=== PATIENT | male | born 2000 | race Asian ===

== ENCOUNTER 2025-01-25 15:24 | Inpatient (IN) ==
[2025-01-25] MEDS: ACETAMINOPHEN 1,000 MG/100 ML VIAL IV STA (15:57)
[2025-01-25] MEDS: KETOROLAC TROMETHAMINE 15 MG/ML VIAL IV STA (15:57)
[2025-01-25] MEDS: dexAMETHasone**PF** 10 MG/ML VIAL IV ONE (15:57)
[2025-01-25] MEDS: SODIUM CHLORIDE 0.9% 1,000 ML IV ONE (15:58)
--- NOTE | 2025-01-25 15:58 | Emergency Department Note ---
Impression & Plan Acute tonsillitis, Leukocytosis, Abnormal computed tomography of neck ED Provider Note NAME: MAKAYLA WILBURN AGE: 24 SEX: M : 2000 ARRIVES VIA: Walk-In INFORMANT: [Patient] ED PROVIDER(S): [Augustin Yeung MD] CHIEF COMPLAINT: Illness HISTORY OF PRESENT ILLNESS: The patient is a 24-year-old male who states that last night, his throat began to hurt. It was worse today and he had a fever. The right side hurts more. It is hard to swallow and he feels a bit short of breath. There has been no cough or congestion. No stuffy nose, no vomiting or diarrhea. He does not have any chest pain. He has no diagnosed lung disease. He denies sick contacts. PMHx/PSHx/Social Hx: See Below PHYSICAL EXAM: GENERAL: Patient is in no acute distress. HEENT: No acute trauma, normocephalic atraumatic, mucous membranes moist, no nasal congestion. Patient has bilateral throat erythema with fullness of the right tonsillar area consistent with potential small abscess. There is no uvular shift. No uvular edema. NECK: No stridor, moderate bilateral anterior cervical adenopathy, no meningismus, trachea is midline. LUNGS: Clear to auscultation bilaterally, no wheeze, no rhonchi, breath sounds equal. HEART: Without murmurs gallops or rubs, regular rate and rhythm. ABDOMEN: Soft, nontender, no peritonitis. EXTREMITIES: No cyanosis, full range of motion of all the joints without pain or difficulty. NEUROLOGIC: Oriented x 3, no acute motor or sensory deficits, no focal weakness. SKIN: No jaundice, no diaphoresis. DIFFERENTIAL DIAGNOSIS: Peritonsillar abscess, tonsillar cellulitis, pharyngitis, strep pharyngitis, mononucleosis, viral illness, among others. EMERGENCY DEPARTMENT PROCEDURES: MEDICAL DECISION MAKING: There is a moderate leukocytosis at around 17,000, this is consistent with infection. There is a normal hemoglobin and platelet count. No bandemia on the CBC differential. No renal failure or significant electrolyte abnormality. No concerning liver enzyme elevation. COVID, influenza and RSV test were negative. Strep testing was negative. Grand testing was negative. Soft tissue neck CT showed a potential abscess to the left tonsillar space. The airway was patent. On exam, the patient had significant pharyngitis, he had significant cervical adenopathy. The patient received IV Toradol, IV saline. He was given IV Decadron, IV clindamycin and IV Tylenol. The patient does feel improved with the treatment provided above. I did speak with ENT. For now, the patient does not require any emergent ENT intervention. He can be hospitalized on IV antibiotics, fluids and steroids, he can be seen by ENT tomorrow. If a procedure is necessary, it can be performed tomorrow a.m. I spoke with the patient, I did speak with case management, the on-call hospitalist was consulted. Prior/Outside records/notes reviewed: None Imaging/x-ray results per my interpretation: Chest x-ray does not show pneumonia or pneumothorax. There is no mediastinal widening. Chronic Medical/Social conditions affecting care: None Care/Management discussed with: ENT-Dr. Vidales. Case management and the on- call hospitalist. Level of care consideration(s): After review of the information above and other included data: --I believe the patient requires escalation of care to admission DISPOSITION: Admission Past Med/Surg History Problem List (Updated 01/25/25 @ 19:00 by Augustin Yeung MD) Abnormal computed tomography of neck (Acute) Leukocytosis (Acute) Acute tonsillitis (Acute) Tonsillar abscess Medical History No significant medical problems Social History Smoking Status: Former smoker Preferred Language: Polish Feels Safe at Home: Yes Allergies Allergies Allergy/AdvReac Type Severity Reaction Status Date / Time shrimp Allergy Severe Itchy Unverified 01/25/25 17:33 Throat Penicillins Allergy Unknown Verified 01/25/25 17:33 Home Meds Home Medications Medication Instructions Recorded Confirmed No Known Home Medications 01/25/25 01/25/25 Results & Data (ED) Vital Signs Vital Signs - 24 hr 01/25/25 15:25 01/25/25 15:42 01/25/25 15:44 Temperature 36.8 C Temperature Source Temporal Artery Scan Pulse Rate 102 H 95 H 95 H Pulse Rate [Apical] Pulse Rate from SpO2 Sensor 93 H Pulse Strength Normal Respiratory Rate 19 22 Respiratory Effort / Characteristics Non-Labored Spontaneous Respiratory Depth Normal Respiratory Pattern Regular Blood Pressure 114/61 146/90 H Blood Pressure [Right Arm] Blood Pressure Mean 78 108 Blood Pressure Mean [Right Arm] Blood Pressure Position Sitting Pulse Oximetry 92 98 Oxygen Delivery Method Room Air Room Air Sepsis Recent Fever Within 48 Hours No Sepsis New/Unexplained Change in Mental Status No Sepsis Action Taken by Nursing No Action Required 01/25/25 16:06 01/25/25 18:00 Temperature Temperature Source Pulse Rate 93 H Pulse Rate [Apical] 72 Pulse Rate from SpO2 Sensor 93 H Pulse Strength Respiratory Rate 19 17 Respiratory Effort / Characteristics Non-Labored Spontaneous Respiratory Depth Normal Respiratory Pattern Regular Blood Pressure 134/96 Blood Pressure [Right Arm] 121/59 L Blood Pressure Mean 108 Blood Pressure Mean [Right Arm] 79 Blood Pressure Position Pulse Oximetry 99 97 Oxygen Delivery Method Room Air Room Air Sepsis Recent Fever Within 48 Hours Sepsis New/Unexplained Change in Mental Status Sepsis Action Taken by Longterm Medications Current Medication List: was personally reviewed by me Laboratory Data Attestation: I reviewed the patient's lab results. 01/25/25 15:45 01/25/25 15:45 Lab Results 01/25/25 Range/Units 15:45 WBC 17.42 H (4.8-10.8) K/ul RBC 4.57 L (4.70-6.10) M/uL Hgb 14.5 (14.0-18.0) g/dl Hct 42.6 (42.0-52.0) % MCV 93.2 (80.0-100.0) fL MCH 31.7 (25.0-34.0) pg MCHC 34.0 (32.0-36.0) g/dL RDW Std Deviation 39.2 (36.4-46.3) fL RDW Coeff of Azul 11.7 (11.5-14.5) % Plt Count 273 (130-400) K/uL MPV 9.4 (9.4-12.4) fL Immature Gran % (Auto) 0.6 % Neut % (Auto) 83.9 % Lymph % (Auto) 6.3 % Grand % (Auto) 8.7 % Eos % (Auto) 0.2 % Baso % (Auto) 0.3 % Neut # (Auto) 14.62 H (1.40-6.50) K/uL Lymph # (Auto) 1.10 L (1.20-3.40) K/uL Grand # (Auto) 1.51 H (0.11-0.59) K/uL Eos # (Auto) 0.03 (0.00-0.50) K/uL Baso # (Auto) 0.06 (0.00-0.20) K/uL Immature Gran # (Auto) 0.10 (0.01-0.20) K/uL Sodium 134 L (136-145) mmol/L Potassium 3.6 (3.5-5.1) mmol/L Chloride 99 (98-107) mmol/L Carbon Dioxide 28 (21-32) mmol/L Anion Gap 7 (3-11) BUN 7 (6-23) mg/dl Creatinine 0.96 (0.6-1.4) mg/dl Est Cr Clr Drug Dosing 132.9 ml/min eGFR 112.49 BUN/Creatinine Ratio 7.3 L (10-20) Glucose 120 H (70-99(Fasting)) mg/dl Calcium 9.2 (8.6-10.3) mg/dl Total Bilirubin 0.8 (0.2-1.0) mg/dl AST 13 (13-39) U/L ALT 10 (7-52) U/L Alkaline Phosphatase 60 (34-104) U/L Total Protein 7.9 (6.0-8.3) gm/dl Albumin 4.1 (3.4-5.0) gm/dl Globulin 3.8 (2.5-4.0) gm/dl Albumin/Globulin Ratio 1.1 (0.9-2) SARS-CoV-2 (PCR) NEGATIVE (Negative) Monoscreen Negative (Negative) Influenza Type A (PCR) Negative (Neg) Influenza Type B (PCR) Negative (Neg) RSV (RT-PCR) Negative (Neg) Group A Strep (PCR) NOT DETECTED (NotDetected) Administered Medications Discontinued Medications Dexamethasone Sodium Phosphate (DexamethasonePf 10 Mg/Ml Vial) 10 mg IV NOW ONE Stop: 01/25/25 15:45 Last Admin: 01/25/25 15:57 Dose: 10 mg Documented By: KMO Sodium Chloride (Nss) 1,000 mls @ 999 mls/hr IV .Q1H1M ONE Stop: 01/25/25 16:44 Last Infusion: 01/25/25 17:41 Dose: Infused Documented By: Admin: 01/25/25 15:58 Dose: 999 mls/hr Documented By: ROSALIA Acetaminophen (Ofirmev) 1,000 mg in 100 mls @ 400 mls/hr IV NOW STA Stop: 01/25/25 15:58 Last Infusion: 01/25/25 17:41 Dose: Infused Documented By: Admin: 01/25/25 15:57 Dose: 400 mls/hr Documented By: ROSALIA Ampicillin Sodium/Sulbactam Sodium (Unasyn) 3,000 mg in 100 mls @ 200 mls/hr IV NOW STA Stop: 01/25/25 16:13 Last Admin: 01/25/25 16:10 Dose: Not Given Documented By: ROSALIA Clindamycin Phosphate (Cleocin/D5w) 900 mg in 50 mls @ 100 mls/hr IV NOW ONE Stop: 01/25/25 16:35 Last Infusion: 01/25/25 18:54 Dose: Infused Documented By: Admin: 01/25/25 18:04 Dose: 100 mls/hr Documented By: ROSALIA Ioversol (Optiray 320 100ml) 90 ml IV ONCE ONE Stop: 01/25/25 17:09 Last Admin: 01/25/25 17:08 Dose: 90 ml Documented By: GABE Ketorolac Tromethamine (Ketorolac Tromethamine 15 Mg/Ml Vial) 15 mg IV NOW STA Stop: 01/25/25 15:45 Last Admin: 01/25/25 15:57 Dose: 15 mg Documented By: ROSALIA Imaging Data Radiologist's Impression: Chest X-Ray 01/25/25 15:44 XR chest 1V portable CLINICAL HISTORY: sob COMPARISON STUDY: None FINDINGS: Heart size and pulmonary vasculature are normal. No consolidation or pleural effusion. No pneumothorax. IMPRESSION: No acute findings. ACT 112: Negative or not required by law. Electronically signed by: Burt Escobedo M.D. 01/25/2025 3:[address] PM [address] Tissue Neck [address] 01/25/25 15:44 Clinical history: Right tonsillar swelling Technique: Axial computed tomography images were obtained of the neck after the administration of intravenous contrast Findings: There is bilateral palatine tonsillar enlargement. There is a 1.5 cm abscess in the left palatine tonsil. The salivary glands appear unremarkable. There are enlarged lymph nodes in the parapharyngeal, carotid, and posterior triangle spaces bilaterally, measuring up to 1.6 cm in short axis. No foreign body is evident There is no sign of epiglottitis or prevertebral inflammation. No definite abnormality of the larynx is noted. The thyroid gland appears normal. The jugular veins appear patent. No stenosis is seen of the carotid arteries. There are mucus retention cysts in the maxillary sinuses bilaterally. The mastoid air cells appear clear. The lung apices appear unremarkable Impression: 1. Bilateral tonsillar enlargement with a 1.5 cm abscess in the left palatine tonsil 2. Bilateral neck adenopathy, likely due to infection 3. Chronic sinusitis ACT 112: Positive. There are findings on this exam that require communication between the performing entity and the patient following Patient Test Result Information Act ([place] ACT 112) guidelines. Electronically signed by Vincent Sanders 01-25-2025 5:25 PM Discharge Plan Visit Data Chief Complaint: Illness Stated Complaint: FEVER,EXTREME PAIN IN THROAT,HARD TO BREATHE ED Provider: Augustin Yeung Discharge Problem: Acute tonsillitis, Leukocytosis, Abnormal computed tomography of neck Patient Disposition: Admitted As Inpatient Condition: Fair Forms Stand Alone Forms: [employer] Prescriptions Prescriptions: No Action No Known Home Medications Referrals Referrals: PCP,NO [Primary Care Provider] - Discharge Problem: Acute tonsillitis Qualifiers: Pharyngitis/tonsillitis etiology: unspecified etiology Qualified Code(s): J 03.90 - Acute tonsillitis, unspecified Leukocytosis Qualifiers: Leukocytosis type: unspecified Qualified Code(s): D72.829 - Elevated white blood cell count, unspecified
--- NOTE | 2025-01-25 15:59 | XRay Report ---
XR chest 1V portable CLINICAL HISTORY: sob COMPARISON STUDY: None FINDINGS: Heart size and pulmonary vasculature are normal. No consolidation or pleural effusion. No p neumothorax. IMPRESSION: No acute findings. ACT 112: Negative or not required by law. Electronically signed by: Burt Escobedo M.D. 01/25/2025 3:58 PM
[2025-01-25 16:07] LABS: Hematocrit (blood only) 42.6 % (42.0-52.0); Hemoglobin 14.5 g/dl (14.0-18.0); Immature Granulocytes # (auto) 0.10 K/uL (0.01-0.20); Immature Granulocytes % (auto) 0.6 %; Mean Corpuscular Hemoglobin 31.7 pg (25.0-34.0); Mean Corpuscular Volume 93.2 fL (80.0-100.0); Platelet Count 273 K/uL (130-400); RDW Standard Deviation 39.2 fL (36.4-46.3); Red Blood Count 4.57 M/uL (4.70-6.10); White Blood Count 17.42 K/ul (4.8-10.8)
[2025-01-25] MEDS: AMPICILLIN/SULBACTAM SOD 3,000 MG/100 ML BAG IV STA (16:10)
[2025-01-25 16:25] LABS: Alanine Aminotransferase 10.0 U/L (7-52); Albumin Globulin Ratio 1.1 (0.9-2); Alkaline Phosphatase 60.0 U/L (34-104); Anion Gap 7.0 (3-11); Bilirubin,Total 0.8 mg/dl (0.2-1.0); Blood Urea Nitrogen 7.0 mg/dl (6-23); Calcium 9.2 mg/dl (8.6-10.3); Carbon Dioxide 28.0 mmol/L (21-32); Chloride 99.0 mmol/L (98-107); Creatinine Clr Calc Pharmacy 132.9 ml/min; Globulin 3.8 gm/dl (2.5-4.0); Glucose 120.0 mg/dl (70-99(Fasting)); Potassium 3.6 mmol/L (3.5-5.1); Sodium 134.0 mmol/L (136-145); Total Protein 7.9 gm/dl (6.0-8.3)
[2025-01-25 16:45] LABS: Influenza A virus by PCR Negative (Neg); Influenza B virus by PCR Negative (Neg); SARS CoV2 RNA(COVID-19) Ceph NEGATIVE (Negative)
[2025-01-25] MEDS: OPTIRAY 320 100ml IV ONE (17:08)
--- NOTE | 2025-01-25 17:25 | CT Scan Report ---
Clinical history: Right tonsillar swelling Technique: Axial computed tomography images were obtained of the neck after the administration of intravenous contrast Findings: There is bilateral palatine tonsillar enlargement. There is a 1.5 cm abscess in the left palatine tonsil. The salivary glands appear unremarkable. There are enlarged lymph nodes in the parapharyngeal, carotid, and posterior triangle spaces bilaterally, measuring up to 1.6 cm in short axis. No foreign body is evident There is no sign of epiglottitis or prevertebral inflammation. No definite abnormality of the larynx is noted. The thyroid gland appears normal. The jugular veins appear patent. No stenosis is seen of the carotid arteries. There are mucus retention cysts in the maxillary sinuses bilaterally. The mastoid air cells appear clear. The lung apices appear unremarkable Impression: 1. Bilateral tonsillar enlargement with a 1.5 cm abscess in the left palatine tonsil 2. Bilateral neck adenopathy, likely due to infection 3. Chronic sinusitis ACT 112: Positive. There are findings on this exam that require communication between the performing entity and the patient following Patient Test Result Information Act ([place] ACT 112) guidelines. Electronically signed by Vincent Sanders 01-25-2025 5:25 PM
[2025-01-25] MEDS: CLINDAMYCIN/D5W 900 MG/50 ML BAG IV ONE (18:04)
[2025-01-25] MEDS ORDERED: ACETAMINOPHEN 325 MG TAB PO PRN (18:19)
--- NOTE | 2025-01-25 18:28 | History & Physical Report ---
Date of Service January 25, 2025 Assessment & Plan (1) Tonsillar abscess: Plan Assessment/plan Tonsillitis with possible peritonsillar abscess Patient presents with fever, throat pain for 1 day Leukocytosis present on admission Soft tissue of the neck showed bilateral tonsillar enlargement with 1.5 cm abscess in the left palatine tonsil, bilateral neck adenopathy, chronic sinusitis. Provide supportive care with IV fluids, analgesics. Full liquid diet IV ampicillin-sulbactam 3 g every 6 hours ED provider discussed with ENT; consult placed; to be seen in a.m. Full code DVT prophylaxis ambulation, SCDs Time spent evaluating patient, direct bedside care, chart review, placing orders, interpretation of diagnostic studies, discussion with consultants, patient, and family members, as well as other required patient management activ ities is 60 minutes Please note the above document was generated using voice recognition software. It may contain grammatical, syntax or spelling errors. Any formal questions or concerns about the content, text or information contained within the body of this dictation should be directly addressed to the provider for clarification History of Present Illness Chief Complaint: Sore throat and fever for 1 day Primary Care Provider: NO PCP Patient is a 24-year-old male who presented to the ED with complaint of sore throat since last 1 day. He also reports fever as well for similar duration. He reports pain on the right side of his neck while swallowing. Reports mild shortness of breath; no stridor. He denies complaint of vision changes, weakness/numbness of any body part, neck rigidity, chest pain, abdominal pain or urinary symptoms. On presentation to the ED, he was afebrile, normotensive and saturating well in room air.He was found to have leukocytosis with WC count of 17,000. Serum sodium of 134. Chest x-ray did not show any acute finding. Soft tissue of the neck showed bilateral tonsillar enlargement with 1.5 cm abscess in the left palatine tonsil, bilateral neck adenopathy, chronic sinusitis. ED provider discussed with ENT; who recommended IV fluids, IV antibiotic; to be seen in a.m. to determine if patient will need abscess drainage. Allergies Allergy/AdvReac Type Severity Reaction Status Date / Time shrimp Allergy Severe Itchy Unverified 01/25/25 17:33 Throat Penicillins Allergy Unknown Verified 01/25/25 17:33 Home Medications Medication Instructions Recorded Confirmed Type No Known Home Medications 01/25/25 01/25/25 History Past Med/Surg History Problem List (Updated 01/25/25 @ 18:26 by Ashish Mora MD) Tonsillar abscess Social History Smoking Status: Former smoker Preferred Language: Cook Islander Feels Safe at Home: Yes Review of Systems Review of Systems: All systems reviewed & are unremarkable except as noted in Subjective Physical Exam Physical Exam: On physical examination; Constitutional: Appears tired; no stridor. Mouth/;Throat erythema, right-sided tonsillar enlargement Respiratory: normal respiratory effort, lungs clear to auscultation, no wheeze, rales, rhonchi. Normal insp/exp effort, no accessory muscle use Cardiovascular: RRR, no murmur, no edema Vessels: no JVD or carotid bruit Chest: normal inspection of chest Abdomen: normal bowel sounds, soft, nontender, no hepatosplenomegaly Musculoskeletal: no cyanosis or clubbing, extremities motor strength 5/5 Skin: no rashes, warm and dry normal turgor Neurologic: PERRL, EOMI, accommodation nl, no face palsy, no dysarthria CN's II- XI intact bilaterally and moves all extremities Psychiatric: A+Ox3, euthymic affec Results & Data Results & Data Vital Signs (Past 12 Hours) Vital Signs Temp Pulse Pulse Resp BP BP Pulse Ox 01/25/25 18:00 72 17 121/59 L 97 01/25/25 16:06 93 H 19 134/96 99 01/25/25 15:44 95 H 01/25/25 15:42 95 H 22 146/90 H 98 01/25/25 15:25 36.8 C 102 H 19 114/61 92 O2 Del Method 01/25/25 18:00 Room Air 01/25/25 16:06 Room Air 01/25/25 15:44 01/25/25 15:42 Room Air 01/25/25 15:25 Room Air Code Status & VTE Plan VTE Prophylaxis Plan VTE Prophylaxis will be ordered: Yes
[2025-01-25] MEDS: SODIUM CHLORIDE 0.9% 500 ML IV SCH (19:35)
[2025-01-25] MEDS: KETOROLAC TROMETHAMINE 15 MG/ML VIAL IV PRN (21:48)
[2025-01-25] MEDS: AMPICILLIN/SULBACTAM SOD 3,000 MG/100 ML BAG IV SCH (21:53)
[2025-01-25 22:28] VITALS: PULSE 72; RESP 18
--- NOTE | 2025-01-26 06:57 | ENT Consultation ---
Date of Consultation January 26, 2025 Assessment & Plan (1) Acute tonsillitis: Bilateral exudative tonsillitis with leukocytosis, nonspecific bacterial etiology. Strep and mono testing negative. COVID-negative. He is clinically significantly improved with resolution of dysphagia and pain with a few doses of IV antibiotics. Clinically there is no tonsil or asymmetry and no abscess amenable to drainage. I personally reviewed his CT scan from last night and it shows inflammatory changes of the tonsils bilaterally. There is a cystic lucency within the parenchyma of the left tonsil. The peritonsillar space is normal and his pain upon presentation was on the contralateral side and has improved. Confident he will continue to improve with appropriate antibiotics. There is no surgical indication at this time. Diet can be advanced. If white count is improved then he could be converted over to oral antibiotics with anaerobic coverage Augmentin (tolerating Unasyn but reports penicillin allergy) versus clindamycin and potentially discharged later today or tomorrow. ENT follow-up if symptoms not resolved within a week or worsening prior History of Present Illness Reason for Consultation: Exudative tonsillitis, possible abscess Attending Physician: Ashish Mora MD History of Present Illness 24-year-old male, recent travel history to [facility] in the past 2 weeks where he developed a sore throat felt feverish. Poor historian and not sure what treatment he was given there however he returned home and was feeling well until 24 hours ago developed increasing sore throat with fever difficulty swallowing. Throat pain was on the right side. Presented to the ER and found to have a white count of 17,[address] scan of the neck was completed showing adenopathy consistent with exam and tonsil inflammation. There is a lucency in the left measuring 1.5 cm. He was afebrile on admission. He received antibiotics and a dose of IV dexamethasone in the emergency room and has been admitted on Unasyn. Reports significant improvement in his symptoms today. He feels well this morning and is able to swallow his secretions. He is having no laterality to his throat discomfort. He has no anxiety about his breathing. Allergies Allergy/AdvReac Type Severity Reaction Status Date / Time shrimp Allergy Severe Itchy Unverified 01/25/25 17:33 Throat Penicillins Allergy Unknown Verified 01/25/25 17:33 Home Medications Medication Instructions Recorded Confirmed Type No Known Home Medications 01/25/25 01/25/25 History Patient History Medical History No significant medical problems Social History Smoking Status: Former smoker Tobacco Type: Cigarettes Second Hand Exposure: No; Do You Dip or Chew Tobacco: No; Tobacco Cessation Education Requested by Patient: No Hx Alcohol Use: No Hx Substance Use: No Preferred Language: Yi Communication Ability: Effective Scraper Hand Required: No Beliefs That Will Affect Care: None Current Living Situation: Alone Other Information That Helps Us Care for You: No Feels Safe at Home: Yes Safety Concerns: Feels Safe At This Time Assistive Devices: None Physical Exam Physical Exam: * Constitution: Afebrile temperature 36.9 * General Appearance: Well developed, Well nourished, No acute distress * Head, Face, Salivary Glands, and TMJ * Inspection of Head and Face: Normal facial symmetry, Normal facial contours, No masses noted, No significant scars, No lesions present, No swelling * Head/Face Palpation: No tenderness to percussion or pressure, Normal skeletal contour and stability * Parotid/Submandibular Glands Palpation: Parotid glands normal, Submandibular glands normal * Facial Strength and Mobility: Facial strength and mobility normal on left, Facial strength and mobility normal on right * Nose * Nasal Interior: Nasal septum normal, Normal mucosa with no swelling, polyps, active bleeding or evidence of bleeding, normal nasality, * Mouth and Throat * Lips, Teeth, and Gums: Lips normal, Teeth in good repair, Gums normal * Oral Cavity and Oropharynx: Bilateral tonsils are 3+ with dense white exudate superficially. They appear symmetric. Soft palate normal, no bulging or displacement of the uvula in either direction. Palpation of the pillars reveals no fluctuance or specific tenderness on either side, Posterior pharynx normal, Oral mucosa with normal color and moisture, [Anterior two thirds of tongue normal, Hard palate normal, Floor of mouth normal, * Hypopharyngeal Macario: Macario symmetrical, Posterior macario not bulging, No mucosal lesions * Neck and Thyroid * Neck: Normal symmetry, Trachea is midline, mild reactive bilateral level 2 lymphadenopathy, No neck masses, scratch * Thyroid: No masses, No tenderness * Neurologic * Cranial Nerves: II-XII grossly intact and symmetrical Results & Data Vital Signs (Past 12 Hours) Vital Signs Temp Pulse Pulse Resp BP Pulse Ox O2 Del Method 01/25/25 22:07 36.9 C 72 18 121/63 96 Room Air 01/25/25 20:20 85 16 99 Room Air 01/25/25 20:00 67 16 103/60 98 Room Air 01/25/25 19:48 70 PG Care Time/CCT Total # of Minutes Spent Total Time Spent with Patient: Total time spent is greater than 50% in coordination of care (as documented) at patient's floor/unit and/or counseling patient: Coding Level of Care Code 58445 IN/OBS CONSULT LVL 3,45M Diagnoses Acute tonsillitis J03.90 Pharyngitis/tonsillitis etiology: unspecified etiology (1) Acute tonsillitis Pharyngitis/tonsillitis etiology: unspecified etiology Qualified Code(s): J03.90 - Acute tonsillitis, unspecified
[2025-01-26 07:12] VITALS: BP 104/61; TEMP 98.1; O2SAT 99
[2025-01-26 07:51] LABS: Hematocrit (blood only) 38.4 % (42.0-52.0); Hemoglobin 13.6 g/dl (14.0-18.0); Mean Corpuscular Hemoglobin 32.9 pg (25.0-34.0); Mean Corpuscular Volume 93.0 fL (80.0-100.0); Platelet Count 274 K/uL (130-400); RDW Standard Deviation 38.6 fL (36.4-46.3); Red Blood Count 4.13 M/uL (4.70-6.10); White Blood Count 22.98 K/ul (4.8-10.8)
[2025-01-26 08:19] LABS: Immature Granulocytes # (auto) 0.17 K/uL (0.01-0.20); Immature Granulocytes % (auto) 0.7 %
[2025-01-26 08:47] LABS: Anion Gap 6.0 (3-11); Blood Urea Nitrogen 8.0 mg/dl (6-23); Calcium 8.9 mg/dl (8.6-10.3); Carbon Dioxide 26.0 mmol/L (21-32); Chloride 106.0 mmol/L (98-107); Creatinine Clr Calc Pharmacy 187.7 ml/min; Glucose 121.0 mg/dl (70-99(Fasting)); Potassium 4.4 mmol/L (3.5-5.1); Sodium 138.0 mmol/L (136-145)
--- NOTE | 2025-01-26 10:40 | Discharge Summary ---
Discharge Summary Date of Service January 26, 2025 Principal Dx & Hospital Course #1 = Principal Diagnosis (1) Tonsillar abscess: Plan Patient is a 24-year-old gentleman presented to the emergency room with severe sore throat. Imaging in the emergency room was concerning for tonsillar abscess and had significant leukocytosis. Patient was referred to the hospital for further care. Patient was admitted to hospital. He is given IV antibiotics. At this point he has tolerated the Ampicillin antibiotic. This is despite a reported unknown reaction to penicillin. Patient was evaluated by ear nose and throat. There was no indication for surgical intervention. Recommended that he could be transition to oral antibiotics discharged home and follow-up in their office. Patient's symptoms had significantly improved. He is able to swallow without difficulties. He was afebrile. He will be transition to oral antibiotics and discharged home with plans for outpatient follow-up. Notes For Next Care Provider Follow-up with ENT Medication Changes From Visit Augmentin for tonsillitis Ibuprofen for any pain and inflammation Admission HPI Per Admitting Provider Patient is a 24-year-old male who presented to the ED with complaint of sore throat since last 1 day. He also reports fever as well for similar duration. He reports pain on the right side of his neck while swallowing. Reports mild shortness of breath; no stridor. He denies complaint of vision changes, weakness/numbness of any body part, neck rigidity, chest pain, abdominal pain or urinary symptoms. On presentation to the ED, he was afebrile, normotensive and saturating well in room air.He was found to have leukocytosis with WC count of 17,000. Serum sodium of 134. Chest x-ray did not show any acute finding. Soft tissue of the neck showed bilateral tonsillar enlargement with 1.5 cm abscess in the left palatine tonsil, bilateral neck adenopathy, chronic sinusitis. ED provider discussed with ENT; who recommended IV fluids, IV antibiotic; to be seen in a.m. to determine if patient will need abscess drainage. Admission Exam Per Admitting Provider See H&P Discharge Exam Constitutional: Alert, nontoxic in appearance HEENT: Mucous membranes moist. Tonsil significantly less inflamed, still some exudate on both tonsils right greater than left, some lymphadenopathy, improving Lungs: Clear to auscultation, decreased, no wheezes rales or rhonchi CV: S1-S2, regular Abdomen: Soft, nontender, nondistended Extremities: No significant edema Neuro: No focal deficits Psych: Cooperative, normal mood Updated Medication List Medication Instructions Recorded Confirmed Type amoxicillin 875 mg-potassium 1 tab PO BID #14 tabs 01/26/25 Rx clavulanate 125 mg tablet ibuprofen 600 mg tablet 600 mg PO Q6H PRN pain #20 tabs 01/26/25 Rx Hospital Stay Data Consultations 01/25/25 18:01 ED Decision to Admit Stat 01/25/25 18:19 Consult Otolaryngology (Head and Neck) Routine Diagnostic Imagining Performed 01/25/25 15:44 CT soft tissue neck w con Stat Reviewed imaging, laboratory and diagnostic studies. Pertinent findings as below. WBCs 22.9 Hemoglobin 13.6 Electrolytes within normal range Creatinine 0.68 COVID-negative [place] negative Flu negative RSV negative Strep negative Pending Results Patient Have Any Pending Studies at Discharge: No Discharge Instructions Given to Patient (Per Discharging Provider) Follow-up with the ENT as scheduled Complete course of antibiotics Total Time Total Time Spent Total Time Spent (In Minutes): 20
== END 2025-01-26 12:47 | disposition home or self-care (01) | DRG 153 ==
LOC: ED 15:24 → 3N 18:19 → SUATTDRO 18:19 → 3N 20:20

== ENCOUNTER 2025-04-19 14:53 | Inpatient (IN) ==
--- NOTE | 2025-04-19 15:20 | Emergency Department Note ---
Impression & Plan Tonsillar abscess, Leukocytosis, Fever ED Provider Note CHIEF COMPLAINT: Fever, swollen throat HISTORY OF PRESENTING ILLNESS: The patient is a 24-year-old male who presents emergency department reporting a fever and a sore throat that started yesterday. He also notes left sided neck swelling and discomfort with eating and drinking. He denies nasal congestion, cough, nausea or vomiting, diarrhea. REVIEW OF SYSTEMS: See HPI for pertinent positives and pertinent negatives. ALLERGIES: Penicillin, shrimp MEDICATIONS: See below PAST MEDICAL HISTORY: See below PHYSICAL EXAM: VITALS: Vitals are noted on the nurses note and reviewed by myself. Vital signs stable. GENERAL: 24-year-old male, in no acute distress, nondiaphoretic, well-developed well-nourished. SKIN: Capillary refill less than 2 seconds. HEENT: Normocephalic. PERRLA. EOMI. Nares patent. Mucous membranes moist. Neck is supple without nuchal rigidity. TM visualized bilaterally without abnormality. Throat with left tonsillar edema and exudate. Uvula is midline. Mild swelling appreciated on the left side of neck that is tender to touch. HEART: Regular rate and rhythm without murmurs gallops or rubs. LUNGS: CTA BL without wheezes, rales or rhonchi. No retractions or accessory muscle use. MUSCULOSKELETAL: No gross musculoskeletal defects. NEURO: Patient was alert and oriented to person place and time. No focal neurological deficits. DIFFERENTIAL DIAGNOSIS: Viral infection, influenza, COVID-19, bacterial infection, allergic rhinitis, sinusitis, strep pharyngitis, pneumonia, pneumothorax, bronchitis, GERD, cardiac cause, among others. ED COURSE AND MEDICAL DECISION MAKING: HISTORY FROM INDEPENDENT HISTORIAN: The patient himself. MEDICATIONS GIVEN: Tylenol 1000 mg PO, Toradol 30 mg IM INTERPRETATION OF LABS: No labs were obtained. INTERPRETATION OF IMAGING: Imaging studies were interpreted by myself and read by radiology as per the imaging section of this note. Chest x-ray - No acute cardiopulmonary finding. CT soft tissue neck - Pharyngitis and bilateral palatine tonsillitis. Multiple fluid pockets within and an outside of the left palatine tonsil measuring up to 1.0 cm are compatible with intratonsillar and peritonsillar multiloculated abscesses CONSULTATION: On-call ENT Dr. Miller - Presented the patient to the provider. The provider evaluated the patient's imaging and agreed to evaluating him in the ER for possible drainage. See his note for detail. Recommended admission to hospitalist with IV Zosyn and Decadron overnight. On-call [facility]ist - Presented the patient to the provider and my discussion with ENT. They were agreeable to admission. Discussed that ENT provider request Zosyn and Decadron 10 mg every 6 hours and can be discharged on oral Augmentin and a Medrol pack. He will follow-up with him in the office as needed. MDM SUMMARY: I evaluated the 24-year-old male who presents emergency room due to a fever and sore throat that began today. See HPI and PE above. Patient is tachycardic with a rate of 112 and febrile 37.7 C. Tylenol and Toradol given. Labs obtained showing leukocytosis WBC 15.61. Hemodynamically stable. Mild hyponatremia 132. No other electrolyte abnormality. No SOURAV. COVID/flu/RSV swab negative. [place] negative. Strep negative. All laboratory results were thoroughly reviewed with the patient. Chest x-ray shows no acute cardiopulmonary finding. CT soft tissue neck showed possible abscess as described above. Consultation with on-call ENT provider can be seen in detail above. He evaluated the patient for possible drainage. See his note for full workup/procedure. Consultation with on-call [facility] hospitalist can be seen in detail above. They agreed to admission to medicine. Vitals have improved and he is no longer tachycardic or febrile. Patient is agreeable to admission and all questions answered. The patient was admitted in stable condition. DIAGNOSIS: Tonsillar abscess, leukocytosis, fever The chart was completed utilizing [employer] Speech voice recognition software. Grammatical errors, random word insertions, pronoun errors, and incomplete sentences are an occasional consequence of this system due to software limitations, ambient noise, and hardware issues. Any formal questions or concerns about the content, text, or information contained within the body of this dictation should be directly addressed to the provider for clarification. Past Med/Surg History Problem List (Updated 04/19/25 @ 22:45 by Lexie Smith PA-C) Fever (Acute) Leukocytosis (Acute) Peritonsillar cellulitis Abnormal computed tomography of neck (Acute) Leukocytosis (Acute) Acute tonsillitis (Acute) Tonsillar abscess (Acute) Medical History No significant medical problems Social History Smoking Status: Unknown if ever smoked Tobacco Type: Cigarettes Second Hand Exposure: No; Do You Dip or Chew Tobacco: No; Hx Alcohol Use: No Hx Substance Use: No Preferred Language: Malian Communication Ability: Effective Touch Up Carver Required: No Beliefs That Will Affect Care: None Current Living Situation: Alone Feels Safe at Home: Yes Assistive Devices: None Allergies Allergies Allergy/AdvReac Type Severity Reaction Status Date / Time shrimp Allergy Severe Itchy Unverified 01/25/25 17:33 Throat Penicillins Allergy Unknown Verified 04/19/25 21:36 Home Meds Home Medications Medication Instructions Recorded Confirmed No Known Home Medications 04/19/25 04/19/25 Results & Data (ED) Vital Signs Vital Signs - 24 hr 04/19/25 15:08 04/19/25 16:16 04/19/25 18:53 Temperature 37.7 C H 38 C H Temperature Source Temporal Artery Scan Oral Pulse Rate 112 H Pulse Rate from SpO2 Sensor Respiratory Rate 19 Respiratory Effort / Characteristics Non-Labored Spontaneous Non-Labored Respiratory Depth Normal Normal Blood Pressure 113/68 Blood Pressure Mean 83 Pulse Oximetry 97 Oxygen Delivery Method Room Air Sepsis Recent Fever Within 48 Hours Yes Sepsis New/Unexplained Change in Mental Status N/A Sepsis Action Taken by Nursing No Action Required 04/19/25 20:00 04/19/25 20:24 04/19/25 20:27 Temperature Temperature Source Pulse Rate 82 91 H Pulse Rate from SpO2 Sensor 91 H Respiratory Rate 15 Respiratory Effort / Characteristics Non-Labored Respiratory Depth Normal Blood Pressure Blood Pressure Mean Pulse Oximetry 98 Oxygen Delivery Method Sepsis Recent Fever Within 48 Hours Sepsis New/Unexplained Change in Mental Status Sepsis Action Taken by Nursing 04/19/25 20:36 04/19/25 20:50 04/19/25 21:05 Temperature Temperature Source Pulse Rate 89 82 88 Pulse Rate from SpO2 Sensor Respiratory Rate 18 23 15 Respiratory Effort / Characteristics Respiratory Depth Blood Pressure Blood Pressure Mean Pulse Oximetry Oxygen Delivery Method Sepsis Recent Fever Within 48 Hours Sepsis New/Unexplained Change in Mental Status Sepsis Action Taken by Nursing 04/19/25 21:18 04/19/25 21:21 04/19/25 21:28 Temperature Temperature Source Pulse Rate 86 83 Pulse Rate from SpO2 Sensor Respiratory Rate 19 17 Respiratory Effort / Characteristics Respiratory Depth Blood Pressure 117/69 Blood Pressure Mean 85 Pulse Oximetry Oxygen Delivery Method Sepsis Recent Fever Within 48 Hours Sepsis New/Unexplained Change in Mental Status Sepsis Action Taken by Nursing 04/19/25 21:28 04/19/25 21:30 04/19/25 21:45 Temperature Temperature Source Pulse Rate 85 89 Pulse Rate from SpO2 Sensor Respiratory Rate 15 14 Respiratory Effort / Characteristics Respiratory Depth Blood Pressure 117/69 117/69 Blood Pressure Mean 85 85 Pulse Oximetry 99 Oxygen Delivery Method Sepsis Recent Fever Within 48 Hours Sepsis New/Unexplained Change in Mental Status Sepsis Action Taken by Nursing 04/19/25 21:59 Temperature 37.1 C Temperature Source Oral Pulse Rate 90 Pulse Rate from SpO2 Sensor Respiratory Rate 18 Respiratory Effort / Characteristics Respiratory Depth Blood Pressure 117/69 Blood Pressure Mean Pulse Oximetry 98 Oxygen Delivery Method Room Air Sepsis Recent Fever Within 48 Hours Sepsis New/Unexplained Change in Mental Status Sepsis Action Taken by Nursing Laboratory Data 04/19/25 17:03 04/19/25 17:03 Lab Results 04/19/25 04/19/25 04/19/25 Range/Units 15:17 17:03 20:42 WBC 15.61 H (4.8-10.8) K/ul RBC 4.84 (4.70-6.10) M/uL Hgb 15.1 (14.0-18.0) g/dl Hct 43.3 (42.0-52.0) % MCV 89.5 (80.0-100.0) fL MCH 31.2 (25.0-34.0) pg MCHC 34.9 (32.0-36.0) g/dL RDW Std Deviation 38.1 (36.4-46.3) fL RDW Coeff of Azul 11.8 (11.5-14.5) % Plt Count 167 (130-400) K/uL MPV 10.2 (9.4-12.4) fL Immature Gran % (Auto) 0.4 % Neut % (Auto) 86.3 % Lymph % (Auto) 4.4 % [place] % (Auto) 8.7 % Eos % (Auto) 0.0 % Baso % (Auto) 0.2 % Neut # (Auto) 13.47 H (1.40-6.50) K/uL Lymph # (Auto) 0.68 L (1.20-3.40) K/uL [place] # (Auto) 1.36 H (0.11-0.59) K/uL Eos # (Auto) 0.00 (0.00-0.50) K/uL Baso # (Auto) 0.03 (0.00-0.20) K/uL Immature Gran # (Auto) 0.07 (0.01-0.20) K/uL Sodium 132 L (136-145) mmol/L Potassium 3.7 (3.5-5.1) mmol/L Chloride 100 (98-107) mmol/L Carbon Dioxide 25 (21-32) mmol/L Anion Gap 7 (3-11) BUN 12 (6-23) mg/dl Creatinine 0.92 (0.6-1.4) mg/dl Est Cr Clr Drug Dosing 150.1 ml/min eGFR 118.39 BUN/Creatinine Ratio 13.0 (10-20) Glucose 127 H (70-99(Fasting)) mg/dl Lactate 1.0 (0.4-2.0) mmol/L Calcium 9.3 (8.6-10.3) mg/dl Magnesium 1.8 (1.7-2.4) mg/dl Total Bilirubin 0.9 (0.2-1.0) mg/dl AST 15 (13-39) U/L ALT 14 (7-52) U/L Alkaline Phosphatase 45 (34-104) U/L Total Protein 7.4 (6.0-8.3) gm/dl Albumin 4.2 (3.4-5.0) gm/dl Globulin 3.2 (2.5-4.0) gm/dl Albumin/Globulin Ratio 1.3 (0.9-2) SARS-CoV-2 (PCR) NEGATIVE (Negative) Monoscreen Negative (Negative) Influenza Type A (PCR) Negative (Neg) Influenza Type B (PCR) Negative (Neg) RSV (RT-PCR) Negative (Neg) Group A Strep (PCR) NOT DETECTED (NotDetected) Administered Medications Discontinued Medications Acetaminophen (Acetaminophen 500 Mg Tab) 1,000 mg PO NOW STA Stop: 04/19/25 15:18 Last Admin: 04/19/25 15:27 Dose: 1,000 mg Documented By: ANT Benzocaine/Butamben/Tetracaine HCl (Benzocaine/Tetracain/Butam 50 Appln/5 Gm Can) Confirm Administered Dose 50 appln EXT .STK-MED ONE Stop: 04/19/25 20:15 Last Admin: 04/19/25 21:02 Dose: 50 appln Documented By: JOSE Dexamethasone Sodium Phosphate (DexamethasonePf 10 Mg/Ml Vial) 10 mg IV NOW ONE Stop: 04/19/25 20:35 Last Admin: 04/19/25 21:02 Dose: 10 mg Documented By: JOSE Ampicillin Sodium/Sulbactam Sodium (Unasyn) 3,000 mg in 100 mls @ 200 mls/hr IV NOW STA Stop: 04/19/25 20:34 Last Admin: 04/19/25 21:02 Dose: 200 mls/hr Documented By: JOSE Potassium Chloride/Sodium Chloride (Normal Saline W/20 Meq Kcl) 20 meq in 1,000 mls @ 500 mls/hr IV .Q2H ONE Stop: 04/19/25 22:11 Last Admin: 04/19/25 21:26 Dose: 500 mls/hr Documented By: VELMA Ioversol (Optiray 320 100ml) 93 ml IV ONCE ONE Stop: 04/19/25 17:57 Last Admin: 04/19/25 17:56 Dose: 93 ml Documented By: ALTHEA Ketorolac Tromethamine (Ketorolac Tromethamine 60 Mg/2 Ml Vial) 30 mg IM NOW STA Stop: 04/19/25 15:18 Last Admin: 04/19/25 15:27 Dose: 30 mg Documented By: ANT Imaging Data Radiologist's Impression: Chest X-Ray 04/19/25 15:21 XR chest 1V not portable CLINICAL HISTORY: URI COMPARISON STUDY: 01/25/2025 FINDINGS: Heart size and pulmonary vasculature are normal. No consolidation or pleural effusion. No pneumothorax. IMPRESSION: No pneumonia seen. ACT 112: Negative or not required by law. Electronically signed by: Burt Escobedo M.D. 04/19/2025 3:50 PM Soft Tissue Neck CT 04/19/25 17:14 CT NECK WITH IV CONTRAST: INDICATION: PAIN TECHNIQUE: CT examination of the neck was performed following administration of the intravenous contrast. IV CONTRAST: 100 mL of OMNIPAQUE 300 FINDINGS: PHARYNX: There is nasopharyngeal thickening. Bilateral palatine tonsils are inflamed, left tonsil more inflamed than the right. Within and just outside of the left palatine tonsil are multiple fluid pockets measuring up to 1.0 cm likely representing intratonsillar and peritonsillar multiloculated abscesses. LARYNX: The laryngeal structures appear unremarkable. INFRAHYOID NECK: The prevertebral soft tissues and airways are maintained LYMPH NODES: There are multiple enlarged lymph nodes in left greater than right neck likely representing reactionary lymph nodes. Appearances of the visceral structures, including parotid, submandibular and thyroid glands appear within normal limits. SKELETAL: Unremarkable. VASCULAR: The vascular structures appear intact. OTHER: No significant abnormality identified in the partially visualized brain and thorax. Retention cysts versus polyps in the bilateral maxillary sinuses. IMPRESSION: Pharyngitis and bilateral palatine tonsillitis. Multiple fluid pockets within and an outside of the left palatine tonsil measuring up to 1.0 cm are compatible with intratonsillar and peritonsillar multiloculated abscesses. Electronically signed by Brendon Kaiser 04-19-2025 6:56 PM Discharge Plan Visit Data Chief Complaint: Fever Stated Complaint: FEVER, SWOLLEN THORAT ED Provider: Elizabeth Crespo ED Midlevel Provider: Lexie Smith Discharge Problem: Tonsillar abscess, Leukocytosis, Fever Patient Disposition: Admitted As Inpatient Condition: Good Discharge Instructions Interventions: ED Discharge Assessment Last Done: 04/19/25 21:59 Prescriptions Prescriptions: No Action No Known Home Medications
[2025-04-19] MEDS: ACETAMINOPHEN 500 MG TAB PO STA (15:27)
[2025-04-19] MEDS: KETOROLAC TROMETHAMINE 60 MG/2 ML VIAL IM STA (15:27)
--- NOTE | 2025-04-19 15:51 | XRay Report ---
XR chest 1V not portable CLINICAL HISTORY: URI COMPARISON STUDY: 01/25/2025 FINDINGS: Heart size and pulmonary vasculature are normal. No consolidation or pleural effusion. No p neumothorax. IMPRESSION: No pneumonia seen. ACT 112: Negative or not required by law. Electronically signed by: Burt Escobedo M.D. 04/19/2025 3:50 PM
[2025-04-19 16:03] LABS: Influenza A virus by PCR Negative (Neg); Influenza B virus by PCR Negative (Neg); SARS CoV2 RNA(COVID-19) Ceph NEGATIVE (Negative)
[2025-04-19 17:18] LABS: Hematocrit (blood only) 43.3 % (42.0-52.0); Hemoglobin 15.1 g/dl (14.0-18.0); Immature Granulocytes # (auto) 0.07 K/uL (0.01-0.20); Immature Granulocytes % (auto) 0.4 %; Mean Corpuscular Hemoglobin 31.2 pg (25.0-34.0); Mean Corpuscular Volume 89.5 fL (80.0-100.0); Platelet Count 167 K/uL (130-400); RDW Standard Deviation 38.1 fL (36.4-46.3); Red Blood Count 4.84 M/uL (4.70-6.10); White Blood Count 15.61 K/ul (4.8-10.8)
[2025-04-19 17:32] LABS: Albumin Level 4.2 gm/dl (3.4-5.0); Anion Gap 7.0 (3-11); Bilirubin,Total 0.9 mg/dl (0.2-1.0); Calcium 9.3 mg/dl (8.6-10.3); Carbon Dioxide 25.0 mmol/L (21-32); Chloride 100.0 mmol/L (98-107); Potassium 3.7 mmol/L (3.5-5.1); Sodium 132.0 mmol/L (136-145)
[2025-04-19 17:38] LABS: Alanine Aminotransferase 14.0 U/L (7-52); Albumin Globulin Ratio 1.3 (0.9-2); Alkaline Phosphatase 45.0 U/L (34-104); Blood Urea Nitrogen 12.0 mg/dl (6-23); Creatinine Clr Calc Pharmacy 150.1 ml/min; Globulin 3.2 gm/dl (2.5-4.0); Glucose 127.0 mg/dl (70-99(Fasting)); Total Protein 7.4 gm/dl (6.0-8.3)
[2025-04-19] MEDS: OPTIRAY 320 100ml IV ONE (17:56)
--- NOTE | 2025-04-19 18:57 | CT Scan Report ---
CT NECK WITH IV CONTRAST: INDICATION: PAIN TECHNIQUE: CT examination of the neck was performed following administration of the intravenous contrast. IV CONTRAST: 100 mL of OMNIPAQUE 300 FINDINGS: PHARYNX: There is nasopharyngeal thickening. Bilateral palatine tonsils are inflamed, left tonsil more inflamed than the right. Within and just outside of the left palatine tonsil are multiple fluid pockets measuring up to 1.0 cm likely representing intratonsillar and peritonsillar multiloculated abscesses. LARYNX: The laryngeal structures appear unremarkable. INFRAHYOID NECK: The prevertebral soft tissues and airways are maintained LYMPH NODES: There are multiple enlarged lymph nodes in left greater than right neck likely representing reactionary lymph nodes. Appearances of the visceral structures, including parotid, submandibular and thyroid glands appear within normal limits. SKELETAL: Unremarkable. VASCULAR: The vascular structures appear intact. OTHER: No significant abnormality identified in the partially visualized brain and thorax. Retention cysts versus polyps in the bilateral maxillary sinuses. IMPRESSION: Pharyngitis and bilateral palatine tonsillitis. Multiple fluid pockets within and an outside of the left palatine tonsil measuring up to 1.0 cm are compatible with intratonsillar and peritonsillar multiloculated abscesses. Electronically signed by Brendon Kaiser 04-19-2025 6:56 PM
[2025-04-19] MEDS ORDERED: BENZOCAINE 20% SPRY 85 APPLN/85 GM CAN EXT PRN (19:48)
--- NOTE | 2025-04-19 19:59 | ENT Consultation ---
Date of Consultation April 19, 2025 Assessment & Plan (1) Acute tonsillitis: (2) Tonsillar abscess: (3) Peritonsillar cellulitis: Plan I think this is a phlegmon given the negative aspiration / I and D. Consider it a peritonsillar cellulitis. IN the interest of faster resolution I recommend - admission (hospitalist) for IV fluids - IV Unasyn 3 gr q6h - IV Decadron 10 mg q6h - fluids / po okay - would anticipate discharge in am - recommend d/c with 10 d po augmentin and a medrol dosepak. - I do not need to see him in am before discharge - he is okay to go assuming there isn't any change for the worse in his clinical trajectory I did advise him that he should consider an elective tonsillectomy at some point. History of Present Illness Reason for Consultation: Possible lt [place] Requesting Physician: Lexie Smith History of Present Illness 24-year-old male who presents emergency department reporting a fever and a sore throat that started yesterday. He also notes left sided neck swelling and discomfort with eating and drinking. He denies nasal congestion, cough, nausea or vomiting, diarrhea. Had similar issue in January 2025 Admitted for unasyn / fluids and went home next day. Treated medically and w/o drainage Today - Gillespie neg Strep neg Covid neg Febrile WBC 15.[address] personally - multiloculated hypodensities lateral to left tonsil. Not discrete. Not clearly fully developed into abscess as yet - might well just be a peritonsillar phlegmon at this point (partic given the duration) In ED - given Unasyn (prev use tolerated) and Decadron Allergies Allergy/AdvReac Type Severity Reaction Status Date / Time shrimp Allergy Severe Itchy Unverified 01/25/25 17:33 Throat Penicillins Allergy Unknown Verified 01/25/25 17:33 Home Medications Medication Instructions Recorded Confirmed Type No Known Home Medications 04/19/25 04/19/25 History Patient History Medical History No significant medical problems Social History Smoking Status: Unknown if ever smoked Tobacco Type: Cigarettes Second Hand Exposure: No; Do You Dip or Chew Tobacco: No; Hx Alcohol Use: No Hx Substance Use: No Preferred Language: Uzbek Communication Ability: Effective Supervisor Sterile Processing Required: No Beliefs That Will Affect Care: None Current Living Situation: Alone Feels Safe at Home: Yes Assistive Devices: None Review of Systems Ear, Nose, Mouth, Throat: as per Subjective / HPI Physical Exam Physical Exam: General: No acute distress, nonlabored respirations Face: normal facial motion Eyes: Extraocular motion is intact. Normal sclera and conjunctiva Ears: External auditory canals are clear. Tympanic membrane is intact and the middle ear is aerated bilaterally. Nose: no external deformity, nares patent. No rhinorrhea or epistaxis. Oral cavity: clear Oropharynx: Uvula midline. Lt tonsil / soft palate swollen +++ and medialized. Exudate / pus over the surface of lt tonsil Neck: soft, no masses or lymphadenopathy Procedure: Incision and drainage of lt peritonsillar abscess Indications: Lt peritonsillar abscess Details: Informed consent was obtained. The oropharynx was visualized directly. 3 cc 1% lidocaine with [id number] epinephrine was instilled into the left superolateral peritonsillar tissue. After adequate local anesthesia was achieved, an 18 gauge needle was used to decompress the lt peritonsillar abscess with return of 0 cc of purulent material. Given the appearance on CT, an 11 blade scalpel was then used to make a superficial incision in the superolateral peritonsillar mucosa and a curved tonsil clamp was used to spread the peritonsillar tissue - no purulent material was expressed despite adequate probing of the peritonsillar space. The patient tolerated the procedure well and there were no complications. Results & Data Vital Signs (Past 12 Hours) Vital Signs Temp Pulse Resp BP Pulse Ox O2 Del Method 04/19/25 16:16 38 C H 04/19/25 15:08 37.7 C H 112 H 19 113/68 97 Room Air Laboratory Results Laboratory Results - last 24 hr 04/19/25 04/19/25 15:17 17:03 WBC 15.61 H RBC 4.84 Hgb 15.1 Hct 43.3 MCV 89.5 MCH 31.2 MCHC 34.9 RDW Std Deviation 38.1 RDW Coeff of Azul 11.8 Plt Count 167 MPV 10.2 Immature Gran % (Auto) 0.4 Neut % (Auto) 86.3 Lymph % (Auto) 4.4 Gillespie % (Auto) 8.7 Eos % (Auto) 0.0 Baso % (Auto) 0.2 Neut # (Auto) 13.47 H Lymph # (Auto) 0.68 L Gillespie # (Auto) 1.36 H Eos # (Auto) 0.00 Baso # (Auto) 0.03 Immature Gran # (Auto) 0.07 Sodium 132 L Potassium 3.7 Chloride 100 Carbon Dioxide 25 Anion Gap 7 BUN 12 Creatinine 0.92 Est Cr Clr Drug Dosing 150.1 eGFR 118.39 BUN/Creatinine Ratio 13.0 Glucose 127 H Calcium 9.3 Total Bilirubin 0.9 AST 15 ALT 14 Alkaline Phosphatase 45 Total Protein 7.4 Albumin 4.2 Globulin 3.2 Albumin/Globulin Ratio 1.3 SARS-CoV-2 (PCR) NEGATIVE Monoscreen Negative Influenza Type A (PCR) Negative Influenza Type B (PCR) Negative RSV (RT-PCR) Negative Group A Strep (PCR) NOT DETECTED Diagnostic Findings Chest X-Ray 04/19/25 15:21 XR chest 1V not portable CLINICAL HISTORY: URI COMPARISON STUDY: 01/25/2025 FINDINGS: Heart size and pulmonary vasculature are normal. No consolidation or pleural effusion. No pneumothorax. IMPRESSION: No pneumonia seen. ACT 112: Negative or not required by law. Electronically signed by: Burt Escobedo M.D. 04/19/2025 3:50 PM Soft Tissue Neck CT 04/19/25 17:14 CT NECK WITH IV CONTRAST: INDICATION: PAIN TECHNIQUE: CT examination of the neck was performed following administration of the intravenous contrast. IV CONTRAST: 100 mL of OMNIPAQUE 300 FINDINGS: PHARYNX: There is nasopharyngeal thickening. Bilateral palatine tonsils are inflamed, left tonsil more inflamed than the right. Within and just outside of the left palatine tonsil are multiple fluid pockets measuring up to 1.0 cm likely representing intratonsillar and peritonsillar multiloculated abscesses. LARYNX: The laryngeal structures appear unremarkable. INFRAHYOID NECK: The prevertebral soft tissues and airways are maintained LYMPH NODES: There are multiple enlarged lymph nodes in left greater than right neck likely representing reactionary lymph nodes. Appearances of the visceral structures, including parotid, submandibular and thyroid glands appear within normal limits. SKELETAL: Unremarkable. VASCULAR: The vascular structures appear intact. OTHER: No significant abnormality identified in the partially visualized brain and thorax. Retention cysts versus polyps in the bilateral maxillary sinuses. IMPRESSION: Pharyngitis and bilateral palatine tonsillitis. Multiple fluid pockets within and an outside of the left palatine tonsil measuring up to 1.0 cm are compatible with intratonsillar and peritonsillar multiloculated abscesses. Electronically signed by Brendon Kaiser 04-19-2025 6:56 PM Medications Administered Home Medications No Known Home Medications 04/19/25 [History Confirmed 04/19/25] Active Medications Benzocaine (Benzocaine 20% Burns 85 Appln/85 Gm Can) 1 appln EXT UD PRN PRN Reason: abscess Stop: 05/19/25 19:47 PG Care Time/CCT Total # of Minutes Spent Total Time Spent with Patient: Total time spent is greater than 50% in coordination of care (as documented) at patient's floor/unit and/or counseling patient: Coding Level of Care Code 84230 OFFICE CONSULT LVL 40M Diagnoses Acute tonsillitis J03.90 Pharyngitis/tonsillitis etiology: unspecified etiology Tonsillar abscess J36 Peritonsillar cellulitis J36 CPT Codes Drainage of Tonsil Abscess - 42844 ([id number]) (1) Acute tonsillitis Pharyngitis/tonsillitis etiology: unspecified etiology Qualified Code(s): J0 3.90 - Acute tonsillitis, unspecified
--- NOTE | 2025-04-19 20:25 | History & Physical Report ---
Date of Service April 19, 2025 Assessment & Plan (1) Tonsillar abscess: (2) Acute tonsillitis: (3) Leukocytosis: Plan: Patient is a 24-year-old male without significant PMH presented to ER with c/o sore throat and fever started yesterday. H/O [facility] hospitalization 01/25/2025- 01/22/2025 for tonsillitis, possible tonsillar abscess treated with IV antibiotics with improvement, no surgical intervention warranted per ENT and d/c on oral antibiotics Today in ER In ER T: 38, P: 112, R: 19, BP 113/68, 97% on room air WBC: 15.6 with left shift Negative strep and monoscreen. Negative influenza, RSV and SARS-CoV-2 PCR CXR: no infiltrate Soft tissue neck CT: Pharyngitis and bilateral palatine tonsillitis. Multiple fluid pockets within and an outside of the left palatine tonsil measuring up to 1.0 cm are compatible with intratonsillar and peritonsillar multiloculated abscesses. In ER given 1000 mg p.o. Tylenol, IM Toradol, IV Unasyn, dexamethasone 10 mg IV ENT consulted, Saw patient in ER and attempted I&D. "[place] likely phlegmon given the negative aspiration. Consider it a peritonsillar cellulitis. Recommended Unasyn, Decadron 10mg IV Q6H with likely discharge tomorrow. Recommended discharging on 10 days Augmentin and medrol dosepak." Further Assessment and Plan per Dr Rueda. See addendum History of Present Illness Chief Complaint: sore throat Primary Care Provider: NO PCP Patient is a 24-year-old male without significant PMH presented to ER with c/o sore throat and fever started yesterday. Per inpatient chart review history of [facility] hospitalization 01/25/2025-01/22/2025 for tonsillitis, possible tonsillar abscess treated with IV antibiotics. Had improvement of symptoms and ENT and no indication for surgical intervention at that time. He was discharged on oral antibiotics. Patient states yesterday started with sore throat and fever. Today increased pain with swallowing and worse to left side. Feels like left side neck more swollen. Denies N/V/D/C, MELGOZA, dizziness, syncope, CP, SOB, palpitations, cough, choking, otalgia, rhinorrhea, abdominal pain, weakness, extremity edema, rashes, urinary symptoms. Allergies Allergy/AdvReac Type Severity Reaction Status Date / Time shrimp Allergy Severe Itchy Unverified 01/25/25 17:33 Throat Penicillins Allergy Unknown Verified 04/19/25 21:36 Home Medications Medication Instructions Recorded Confirmed Type No Known Home Medications 04/19/25 04/19/25 History Past Med/Surg History Problem List (Updated 04/19/25 @ 22:45 by Lexie Smith PA-C) Fever (Acute) Leukocytosis (Acute) Peritonsillar cellulitis Abnormal computed tomography of neck (Acute) Leukocytosis (Acute) Acute tonsillitis (Acute) Tonsillar abscess (Acute) Medical History No significant medical problems Social History Smoking Status: Never smoker Tobacco Type: Cigarettes Second Hand Exposure: No; Do You Dip or Chew Tobacco: No; Tobacco Cessation Education Requested by Patient: No Hx Alcohol Use: No Hx Substance Use: No Preferred Language: [place] Communication Ability: Effective Aviation Warfare Systems Operator Required: No Beliefs That Will Affect Care: None Current Living Situation: Family Other Information That Helps Us Care for You: No Feels Safe at Home: Yes Safety Concerns: Feels Safe At This Time Assistive Devices: Hospital Bed Review of Systems Review of Systems: All systems reviewed & are unremarkable except as noted in HPI & below Physical Exam Physical Exam: General: no distress, WDWN Head: normocephalic, atraumatic Eyes: conjunctiva non-injected, anicteric ENT: normal inspection external ears, nose, mucous membranes moist, +edema bilateral tonsils with left greater than right. +incision noted to left without active bleeding or drainage, uvula is midline Neck: supple, trachea midline, +anterior cervical adenopathy, left greater than right Lungs: clear, no respiratory distress, no wheezing/rhonchi/rales CV: RRR, no murmur, no pretibial edema Abd: normal BS, soft, non-tender Ext: no cyanosis, no calf tenderness Neuro: A&O x 3, no focal deficits noted, normal affect Skin: warm, dry Results & Data Results & Data Vital Signs (Past 12 Hours) Vital Signs Temp Pulse Resp BP Pulse Ox O2 Del Method 04/19/25 16:16 38 C H 04/19/25 15:08 37.7 C H 112 H 19 113/68 97 Room Air Laboratory Results Short CBC 04/19/25 Range/Units 17:03 WBC 15.61 H (4.8-10.8) K/ul Hgb 15.1 (14.0-18.0) g/dl Hct 43.3 (42.0-52.0) % Plt Count 167 (130-400) K/uL BMP 04/19/25 17:03 Sodium 132 L Potassium 3.7 Chloride 100 Carbon Dioxide 25 BUN 12 Creatinine 0.92 Glucose 127 H Calcium 9.3 Liver Function 04/19/25 Range/Units 17:03 Total Bilirubin 0.9 (0.2-1.0) mg/dl AST 15 (13-39) U/L ALT 14 (7-52) U/L Alkaline Phosphatase 45 (34-104) U/L Albumin 4.2 (3.4-5.0) gm/dl Diagnostic Findings Chest X-Ray 04/19/25 15:21 XR chest 1V not portable CLINICAL HISTORY: URI COMPARISON STUDY: 01/25/2025 FINDINGS: Heart size and pulmonary vasculature are normal. No consolidation or pleural effusion. No pneumothorax. IMPRESSION: No pneumonia seen. ACT 112: Negative or not required by law. Electronically signed by: Burt Escobedo M.D. 04/19/2025 3:[address] 04/19/25 17:14 CT NECK WITH IV CONTRAST: INDICATION: PAIN TECHNIQUE: CT examination of the neck was performed following administration of the intravenous contrast. IV CONTRAST: 100 mL of OMNIPAQUE 300 FINDINGS: PHARYNX: There is nasopharyngeal thickening. Bilateral palatine tonsils are inflamed, left tonsil more inflamed than the right. Within and just outside of the left palatine tonsil are multiple fluid pockets measuring up to 1.0 cm likely representing intratonsillar and peritonsillar multiloculated abscesses. LARYNX: The laryngeal structures appear unremarkable. INFRAHYOID NECK: The prevertebral soft tissues and airways are maintained LYMPH NODES: There are multiple enlarged lymph nodes in left greater than right neck likely representing reactionary lymph nodes. Appearances of the visceral structures, including parotid, submandibular and thyroid glands appear within normal limits. SKELETAL: Unremarkable. VASCULAR: The vascular structures appear intact. OTHER: No significant abnormality identified in the partially visualized brain and thorax. Retention cysts versus polyps in the bilateral maxillary sinuses. IMPRESSION: Pharyngitis and bilateral palatine tonsillitis. Multiple fluid pockets within and an outside of the left palatine tonsil measuring up to 1.0 cm are compatible with intratonsillar and peritonsillar multiloculated abscesses. Electronically signed by Brendon Kaiser 04-19-2025 6:56 PM Supervising Physician Co-Signing Physician Notes IM ATTENDING : Patient seen and examined. History obtained from patient and records. Concur with salient points upon review of preceding documentation by Ms. Sofi Hernández PA-C. I take responsibility for plan of care below. FINAL ASSESSMENT AND PLAN as follows : Sepsis secondary to recurrent tonsillar abscess Hyperglycemia rule out DM Admit to med/surg CS, Unasyn ENT consult re: recurrent tonsillar infections (Patient already seen at the ER by Dr. Montes. IV antibiotics and steroids recommended for now.) Check hemoglobin A1c DVT prophylaxis. SCDs Full code I spent a total of 30 minutes coordinating, documenting, and providing care for this patientexcludingtime spent by another provider/QHP. Text document was generated using [employer] voice recognition software. It may contain grammatical or spelling errors. Kindly contact undersigned for clarification of any documentation item in question. (2) Acute tonsillitis Pharyngitis/tonsillitis etiology: unspecified etiology Qualified Code(s): J03.90 - Acute tonsillitis, unspecified (3) Leukocytosis Leukocytosis type: unspecified Qualified Code(s): D72.829 - Elevated white blood cell count, unspecified
[2025-04-19] MEDS: AMPICILLIN/SULBACTAM SOD 3,000 MG/100 ML BAG IV STA (21:02)
[2025-04-19] MEDS: BENZOCAINE/TETRACAIN/BUTAM 50 APPLN/5 GM CAN EXT ONE (21:02)
[2025-04-19] MEDS: dexAMETHasone**PF** 10 MG/ML VIAL IV ONE (21:02)
[2025-04-19 21:09] LABS: Magnesium 1.8 mg/dl (1.7-2.4)
[2025-04-19] MEDS: NSS + 20MEQ KCL 20 MEQ/1,000 ML BAG IV ONE (21:26)
[2025-04-19] MEDS ORDERED: PROMETHAZINE 6.25 MG/50.25 ML BAG IV PRN (21:36)
[2025-04-19 22:02] VITALS: RESP 18
[2025-04-19] MEDS: ACETAMINOPHEN 325 MG TAB PO PRN (22:58)
[2025-04-20 00:18] VITALS: TEMP 98.1
[2025-04-20] MEDS: AMPICILLIN/SULBACTAM SOD 3,000 MG/100 ML BAG IV SCH (01:07)
[2025-04-20] MEDS: dexAMETHasone 10 MG in SYRINGE 0 ML IV SCH (01:08)
[2025-04-20] MEDS: KETOROLAC TROMETHAMINE 15 MG/ML VIAL IV PRN (01:21)
[2025-04-20 07:00] LABS: Hematocrit (blood only) 41.6 % (42.0-52.0); Hemoglobin 14.7 g/dl (14.0-18.0); Mean Corpuscular Hemoglobin 32.3 pg (25.0-34.0); Mean Corpuscular Volume 91.4 fL (80.0-100.0); Platelet Count 159 K/uL (130-400); RDW Standard Deviation 39.3 fL (36.4-46.3); Red Blood Count 4.55 M/uL (4.70-6.10); White Blood Count 13.35 K/ul (4.8-10.8)
[2025-04-20 07:26] LABS: Immature Granulocytes # (auto) 0.06 K/uL (0.01-0.20); Immature Granulocytes % (auto) 0.4 %
[2025-04-20 07:29] LABS: Hemoglobin A1C 5.3 % (4.5-5.6)
[2025-04-20 07:36] VITALS: O2SAT 99
[2025-04-20 07:38] LABS: Anion Gap 5.0 (3-11); Blood Urea Nitrogen 11.0 mg/dl (6-23); Calcium 9.4 mg/dl (8.6-10.3); Carbon Dioxide 26.0 mmol/L (21-32); Chloride 105.0 mmol/L (98-107); Creatinine Clr Calc Pharmacy 172.5 ml/min; Glucose 166.0 mg/dl (70-99(Fasting)); Potassium 4.7 mmol/L (3.5-5.1); Sodium 136.0 mmol/L (136-145)
[2025-04-20] MEDS: FAMOTIDINE 10 MG TABLET PO SCH (08:04)
--- NOTE | 2025-04-20 10:02 | Discharge Summary ---
Discharge Summary Date of Service April 20, 2025 Principal Dx & Hospital Course #1 = Principal Diagnosis (1) Peritonsillar cellulitis: (2) Acute tonsillitis: Plan Mr. Thompson is a pleasant 24M who was admitted yesterday for sore throat and fever. CT neck showed Pharyngitis and bilateral palatine tonsillitis. Multiple fluid pockets within and an outside of the left palatine tonsil measuring up to 1.0 cm are compatible with intratonsillar and peritonsillar multiloculated abscesses. . ENT was consulted and attempted aspiration of possible abscesses. There was no purulent fluid and ENT did not believe them to be abscesses. There was initially concern for sepsis but he was not septic. He was started on unasyn and steroids. he has a PCN allergy but had no adverse reactions to unasyn. He does not remember what PCN he was allergic to. Today he is feeling well and wishes to go home. He states he is feeling much better than yesterady. ENT cleared for discharge today since he is clinically improving. He will be switched to a ugmentin per ENT. Since he tolerated unasyn, there is very low risk of allergy to augmentin. He will also be on a short prednisone taper. vitals and labs are stable for dc home today. Notes For Next Care Provider Medication Changes From Visit prednisone BID x 5 days , then daily x 5 days augmentin x 10 days Admission HPI Per Admitting Provider Patient is a 24-year-old male without significant PMH presented to ER with c/o sore throat and fever started yesterday. Per inpatient chart review history of [facility] hospitalization 01/25/2025-01/22/2025 for tonsillitis, possible tonsillar abscess treated with IV antibiotics. Had improvement of symptoms and ENT and no indication for surgical intervention at that time. He was discharged on oral antibiotics. Patient states yesterday started with sore throat and fever. Today increased pain with swallowing and worse to left side. Feels like left side neck more swollen. Denies N/V/D/C, MELGOZA, dizziness, syncope, CP, SOB, palpitations, cough, choking, otalgia, rhinorrhea, abdominal pain, weakness, extremity edema, rashes, urinary symptoms. Discharge Exam Vitals and labs reviewed General: Well appearing, NAD HEENT: EOMI, PERRLA White exudates on L tonsil. erythema. Neck: Supple Cardiac: RRR no rubs gallops or murmurs Lungs: CTA no rhonchi wheezing or rales Abd: S NT ND BS positive : Deffered MSK: Full ROM. No obvious deformities Ext: No Edema cyanosis Skin: Warm, Dry Neuro: AOx3 No focal deficits. Psych: Normal Mood Updated Medication List Medication Instructions Recorded Confirmed Type amoxicillin 875 mg-potassium 1 tab PO BID 10 days #20 tabs 04/20/25 Rx clavulanate 125 mg tablet prednisone 20 mg tablet 20 mg PO BID 5 days #10 tabs 04/20/25 Rx Hospital Stay Data Consultations 04/19/25 20:08 ED Decision to Admit Stat Diagnostic Imagining Performed 04/19/25 17:14 CT soft tissue neck w con Stat Pending Results Patient Have Any Pending Studies at Discharge: Yes Discharge Instructions Given to Patient (Per Discharging Provider) Please call and schedule a follow up appt with Dr Saurabh Miller, ENT. Total Time Total Time Spent Total Time Spent (In Minutes): 48
[2025-04-20 10:14] VITALS: BP 117/67; PULSE 76
== END 2025-04-20 10:25 | disposition home or self-care (01) | DRG 153 ==
LOC: ED 14:53 → 2N 20:44